=== PATIENT | female | born 2000 | race Caucasian/White ===

== ENCOUNTER 2018-08-11 11:47 | Emergency (ER) | payer SELFPAY ==
[~2018-08-11] VITALS: Ht 180.3 cm; Wt 70.8 kg
[2018-08-11 12:04] VITALS: BP 116/60; Ht 180.3 cm; Wt 70.8 kg
== END 2018-08-11 13:00 | disposition home or self-care (01) ==
LOC: ED 11:47
DX: M25.512 Pain in left shoulder (principal); V43.62XA Car passenger injured in collision with other type car in traffic accident, initial encounter; Y93.89 Activity, other specified; Y92.411 Interstate highway as the place of occurrence of the external cause; Y99.8 Other external cause status
CPT/HCPCS: J1885

== ENCOUNTER 2019-03-15 15:00 | Emergency (ER) | payer OTHER ==
[~2019-03-15] VITALS: Ht 167.6 cm; Wt 74.8 kg
[2019-03-15 15:04] VITALS: Ht 167.6 cm; Wt 74.8 kg
[2019-03-15 15:35] LABS: BASOPHIL % 1.1 % (0-2); PLATELET COUNT 254 x10^3mcL (130-400); RED CELL DISTRIBUTION WIDTH 13.3 % (11.5-14.5)
[2019-03-15 16:03] LABS: CALCIUM 9.2 mg/dL (8.5-10.1); CARBON DIOXIDE 28.6 mmol/L (21-32); CHLORIDE SERUM 102 mmol/L (98-107); CREATININE SERUM 0.7 mg/dL (0.6-1.0); GFR1 > 60 mL/min; GLUCOSE SERUM 83 mg/dL (74-106); POTASSIUM SERUM 3.9 mmol/L (3.5-5.1); SODIUM SERUM 140 mmol/L (136-145)
[2019-03-15 16:12] LABS: ALBUMIN 4.1 g/dL (3.4-5.0); ALKALINE PHOSPHATASE 51 U/L (46-116); ALT/SGPT 26 U/L (14-59); AST/SGOT 14 U/L (15-37); BILIRUBIN TOTAL 0.5 mg/dL (0.20-1.00); LIPASE 106 IU/L (73-393)
[2019-03-15 16:13] LABS: TOTAL PROTEIN, SERUM 8.5 g/dL (6.4-8.2)
[2019-03-15 18:49] VITALS: BP 128/87
== END 2019-03-15 18:49 | disposition home or self-care (01) ==
LOC: ED 15:00
PROVIDERS: Emergency Medicine
DX: N83.209 Unspecified ovarian cyst, unspecified side (principal); N39.0 Urinary tract infection, site not specified
CPT/HCPCS: 36415

== ENCOUNTER 2019-07-24 12:58 | Emergency (ER) | payer OTHER ==
[~2019-07-24] VITALS: Ht 167.6 cm; Wt 74.8 kg
[2019-07-24 13:02] VITALS: Ht 167.6 cm; Wt 74.8 kg
[2019-07-24 14:18] LABS: BASOPHIL % 0.4 % (0-2); PLATELET COUNT 259 x10^3mcL (130-400); RED CELL DISTRIBUTION WIDTH 13.3 % (11.5-14.5)
[2019-07-24 14:27] LABS: microscopic required? YES; urine erythrocyte NEGATIVE (NEGATIVE)
[2019-07-24 14:38] LABS: CALCIUM 8.9 mg/dL (8.5-10.1); CARBON DIOXIDE 23.3 mmol/L (21-32); CHLORIDE SERUM 104 mmol/L (98-107); CREATININE SERUM 0.7 mg/dL (0.6-1.0); GFR1 > 60 mL/min; GLUCOSE SERUM 101 mg/dL (74-106); POTASSIUM SERUM 3.8 mmol/L (3.5-5.1); SODIUM SERUM 139 mmol/L (136-145)
[2019-07-24 14:43] LABS: ALBUMIN 3.8 g/dL (3.4-5.0); ALKALINE PHOSPHATASE 63 U/L (46-116); ALT/SGPT 25 U/L (14-59); AST/SGOT 21 U/L (15-37); BILIRUBIN TOTAL 0.6 mg/dL (0.20-1.00); TOTAL PROTEIN, SERUM 8.4 g/dL (6.4-8.2)
[2019-07-24 16:30] VITALS: BP 106/68
== END 2019-07-24 16:30 | disposition home or self-care (01) ==
LOC: ED 12:58
PROVIDERS: Emergency Medicine
DX: R55 Syncope and collapse (principal); F41.9 Anxiety disorder, unspecified
CPT/HCPCS: J7030